=== PATIENT | female | born 1955 | race Two or more races ===

== ENCOUNTER 2020-01-14 07:17 | Day surgery (SDC) | payer MEDICAID ==
[2020-01-12 07:47] LABS: BASOPHILS % (AUTO) 1.2 % (0.0-2.0); EOSINOPHILS % (AUTO) 3.6 % (0.0-3.0); HEMOGLOBIN 14.5 G/DL (12.0-16.0); LYMPHOCYTES % (AUTO) 37.6 % (20.0-45.0); MEAN CORPUSCULAR VOLUME 87 FL (80-99); MONOCYTES % (AUTO) 6.7 % (1.0-10.0); PLATELET COUNT 171 K/UL (150-450); RED BLOOD COUNT 4.83 M/UL (4.20-5.40); RED CELL DISTRIBUTION WIDTH 12.2 % (11.6-14.8); WHITE BLOOD COUNT 5.6 K/UL (4.8-10.8)
[2020-01-12 08:01] LABS: APPEARANCE,URINE CLEAR; BILIRUBIN, URINE NEGATIVE (NEGATIVE); COLOR,URINE PALE YELLOW; GLUCOSE, URINE (UA) 4+ (NEGATIVE); KETONES,URINE NEGATIVE (NEGATIVE); LEUKOCYTE ESTERASE ,URINE NEGATIVE (NEGATIVE); NITRITE,URINE NEGATIVE (NEGATIVE); PH,URINE 6.5 (4.5-8.0); PROTEIN,URINE NEGATIVE (NEGATIVE); UROBILINOGEN,URINE NORMAL MG/DL (0.0-1.0)
[2020-01-12 08:45] LABS: ANION GAP 8 mmol/L (5-15); BLOOD UREA NITROGEN 13 mg/dL (7-18); CALCIUM 8.6 MG/DL (8.5-10.1); CARBON DIOXIDE 29 MMOL/L (21-32); CHLORIDE 101 MMOL/L (98-107); CREATININE 0.7 MG/DL (0.55-1.30); POTASSIUM 4.1 MMOL/L (3.5-5.1); SODIUM 138 MMOL/L (136-145)
--- NOTE | 2020-01-12 13:38 | Diagnostic Imaging Report ---
Indication: Cough Technique: 2 views of the chest Comparison: None Findings: Lungs and pleural spaces are clear. The heart size is normal. The bones are unremarkable except for mild thoracic scoliotic deformity and degenerative spondylosis. Impression: No acute process
--- NOTE | 2020-01-12 16:58 | Cardiology Report ---
APPROVED REPORT EKG Measurement Heart [id number] [id number] <Conclusion> Normal sinus rhythm Possible Left atrial enlargement Possible Anterior infarct, age undetermined Abnormal ECG
--- NOTE | 2020-01-13 12:45 | Pre-op HX & Phy Repo 2 SIG ---
DATE OF ADMISSION: 01/14/2020 SCHEDULED FOR OUTPATIENT SURGERY: 01/14/2020 HISTORY OF PRESENT ILLNESS: The patient is a 64-year-old female in stable health, insulin-dependent diabetic who recently underwent breast imaging studies revealing suspicious calcifications in the lower inner quadrant of the left breast. 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 The patient has a past history of excision of a left breast inferior milk cyst at age 20. She is scheduled to undergo left breast partial mastectomy with preoperative needle localization. PAST MEDICAL HISTORY/MEDICATIONS: Insulin and fluoxetine. ALLERGIES: None. OPERATIONS: Excision of left breast milk cyst at age 20. PHYSICAL EXAMINATION: VITAL SIGNS: The patient is 5 feet 3 inches, 174 pounds. HEENT: Within normal limits. LUNGS: Clear. HEART: Regular rhythm. BREASTS: Small to moderate in size and ptotic. There is no palpable mass in either breast. There is no axillary or supraclavicular lymphadenopathy. There is a transverse scar inferiorly in the left breast at 6 o'clock near the periphery. ABDOMEN: Soft. PELVIC: Per primary care. RECTAL: Per primary care. EXTREMITIES: Without edema. NEUROLOGIC: Physiologic. IMPRESSION: Ductal carcinoma in situ, left breast. PLAN: Left breast partial mastectomy with preoperative needle localization. DISCUSSION: I have had a full discussion with the patient regarding the nature of her condition, the nature of the surgery, indications, alternatives, options, and risks including bleeding, infection, scarring or distortion of breast or nipple, need for additional treatment including possible more surgery or other treatments, both medical and radiation based on final pathology, etc. All questions have been answered. She understands and agrees to proceed. Fox Rodriguez M.D. DR: Daiana JOB#: [id number] CC:
[~2020-01-14] VITALS: Ht 162.6 cm; Wt 81.6 kg
[2020-01-14] VITALS (18 sets, daily range): BP systolic 113–161; BP diastolic 66–91
[2020-01-14] MEDS ORDERED: BENAZEPRIL HCL10 MG ORAL (09:33)
[2020-01-14] MEDS ORDERED: ASPIRIN81 MG ORAL (09:34)
[2020-01-14] MEDS ORDERED: Bacitracin 50000 Units Vial ONE (09:56)
[2020-01-14] MEDS ORDERED: NeoSporin Gu Irrig 1ml Amp IRRIG ONE (09:56)
--- NOTE | 2020-01-14 09:59 | Anethesia Preoperative Eval ---
Anesthesia Pre-op PMH/ROS General Date of Evaluation: Jan 14, 2020 Anesthesiologist: Chadd ASA Score: ASA 3 Mallampati Score Class I : Soft palate, uvula, fauces, pillars visible Class II: Soft palate, uvula, fauces visible Class III: Soft palate, base of uvula visible Class IV: Only hard plate visible Mallampati Classification: Class III Surgeon: Michael Diagnosis: Left breast cancer Surgical Procedure: Left breast partial mastectomy Anesthesia History: none Family History: no anesthesia problems Allergies: Coded Allergies: No Known Allergies (Unverified , 01/13/20) Medications: see eMAR Patient NPO?: Yes NPO Date: Jan 14, 2020 NPO Time: 00:00 Past Medical History Cardiovascular: Reports: HTN, other - HLD; Denies: CAD, NE, valve dz, arrhythmia Pulmonary: Denies: asthma, COPD, ANGE, other Gastrointestinal/Genitourinary: Reports: GERD; Denies: CRI, ESRD, other Neurologic/Psychiatric: Reports: depression/anxiety; Denies: dementia, CVA, TIA, other Endocrine: Reports: DM; Denies: hypothyroidism, steroids, other HEENT: Denies: cataract (L), cataract (R), glaucoma, [place] (L), [place] (R), other Hematology/Immune: Reports: anemia; Denies: DVT, bleeding disorder, other Musculoskeletal/Integumentary: Denies: OA, RA, DJD, DDD, edema, other PSxH Narrative: UHR, left breast surgery, btl Anesthesia Pre-op Phys. Exam Physician Exam see chart Constitutional: NAD Cardiovascular: RRR Respiratory: CTA Airway Exam Mallampati Score: Class III MO: full ROM: full Teeth: missing, intact Dentures: upper - partials Anesthesia Pre-op A/P Labs Chemistry Test 01/14/20 09:50 POC Whole Blood Glucose 238 MG/DL (74-106) H Studies Pre-op Studies: EKG - NSR Risk Assessment & Plan Assessment: ASA III Plan: GA Status Change Before Surgery: No Pre-Antibiotics Drug: Ancef 2g Given Within 1 Hr of Incision: Yes Keeley Florentino MD Jan 14, 2020 09:59
[2020-01-14] MEDS ORDERED: DiphenhydrAMINE 50mg/ml Inj IVP PRN (10:00)
[2020-01-14] MEDS ORDERED: LORazepam Inj 2mg/ml 1ml IV PRN (10:00)
[2020-01-14] MEDS ORDERED: fentaNYL 100 mcg/2 mL IV PRN (10:00)
[2020-01-14] MEDS ORDERED: Metoclopramide 10mg/2ml Inj IVP PRN (10:00)
[2020-01-14] MEDS ORDERED: Ketorolac 30mg Inj IV PRN (10:00)
[2020-01-14] MEDS ORDERED: LR 1000ml 1,000 ML IVLG SCH (10:00)
[2020-01-14] MEDS ORDERED: Hydromorphone 0.5mg/0.5ml inj IVP PRN (10:00)
[2020-01-14] MEDS ORDERED: Midazolam 2mg/2ml Inj IVP PRN (10:00)
[2020-01-14] MEDS ORDERED: fentaNYL 100 mcg/2 mL IV ONE (10:05)
[2020-01-14] MEDS ORDERED: Lidocaine 1% MPF 10mg/ml 5ml ONE (10:05)
[2020-01-14] MEDS ORDERED: Midazolam 2mg/2ml Inj ONE (10:05)
--- NOTE | 2020-01-14 10:09 | Pre-Procedure Note/Attestation ---
Pre-Procedure Note/Attestation Complete Prior to Procedure Planned Procedure: left Procedure Narrative: left breast partial mastectomy with pre-operative needle localization Indications for Procedure Pre-Operative Diagnosis: DCIS left breast Attestation I attest that I discussed the nature of the procedure; its benefits; risks and complications; and alternatives (and the risks and benefits of such alternatives), prior to the procedure, with the patient (or the patient's legal direct customer service representative). I attest that, if there was a reasonable possibility of needing a blood transfusion, the patient (or the patient's legal direct customer service representative) was given the [facility] standardized written summary, pursuant to the [place] Blood Safety Act ([place] Health and Safety Code # 1645, as amended). I attest that I re-evaluated the patient just prior to the surgery and that there has been no change in the patient's H&P, except as documented below:none Fox Rodriguez MD Jan 14, 2020 10:09
[2020-01-14] MEDS ORDERED: gabapentin PO (10:24)
[2020-01-14] MEDS ORDERED: atorvastatin PO (10:26)
[2020-01-14] MEDS ORDERED: LR 1000ml ONE (10:30)
[2020-01-14] MEDS ORDERED: NS Irrig 1000ml ONE (10:30)
[2020-01-14] MEDS ORDERED: Sterile Water Irrig 1000ml IRRIG ONE (10:30)
--- NOTE | 2020-01-14 11:28 | Brief Operative Note ---
Immediate Post Operative Note Operative Note Pre-op Diagnosis: DCIS left breast Procedure: left breast partial mastectomy with pre-operative needle localization Post-op Diagnosis: same Surgeon: jennifer Anesthesiologist: matty Anesthesia: general Specimen: yes - left breast calcifications Complications: none Condition: stable Fluids: see anesthesia record Estimated Blood Loss: minimal Drains: none Implant(s) used?: No Fox Rodriguez MD Jan 14, 2020 11:28
[2020-01-14] MEDS ORDERED: Tylenol #3 tab (300mg/30mg) ORAL PRN (11:30)
[2020-01-14] MEDS ORDERED: HYDROmorphone 1mg/ml Carpuject SUBQ PRN (11:30)
[2020-01-14] MEDS ORDERED: HYDROcodone/Acetamin 5/325 tab ORAL PRN (11:30)
[2020-01-14] MEDS ORDERED: GLIPIZIDE5 MG ORAL (11:31)
[2020-01-14] MEDS ORDERED: OMEPRAZOLE PO (11:32)
--- NOTE | 2020-01-14 11:32 | Immediate Post-Op Evaluation ---
Immediate Post-Op Evalulation Immediate Post-Op Evalulation Procedure: Left breast partial mastectomy Date of Evaluation: Jan 14, 2020 Time of Evaluation: 11:33 IV Fluids: 600 Blood Products: 0 Estimated Blood Loss: min Urinary Output: 0 Blood Pressure Systolic: 161 Blood Pressure Diastolic: 81 Pulse Rate: 68 Respiratory Rate: 16 O2 Sat by Pulse Oximetry: 98 Temperature (Fahrenheit): 97.9 Pain Score (1-10): 0 Nausea: No Vomiting: No Complications 0 Patient Status: awake, reacts, patent, none Hydration Status: adequate Drug: Ancef 2g Given Within 1 Hr of Incision: Yes Keeley Florentino MD Jan 14, 2020 11:32
[2020-01-14] MEDS ORDERED: Insulin SUBQ (11:33)
--- NOTE | 2020-01-14 11:33 | 48 Hour Post Anesthesia Eval ---
Post Anesthesia Evaluation Procedure: Left breast partial mastectomy Date of Evaluation: Jan 14, 2020 Airway: patent Nausea: No Vomiting: No Pain Intensity: 0 Hydration Status: adequate Cardiopulmonary Status: at baseline Mental Status/LOC: patient returned to baseline Post-Anesthesia Complications: 0 Follow-up care needed: ready to discharge Keeley Florentino MD Jan 14, 2020 11:33
--- NOTE | 2020-01-14 15:00 | Operative Note - Dictated ---
DATE OF OPERATION: 01/14/2020 SURGEON: Fox Rodriguez MD ASBESTOS BRAKE LINING FINISHER: None. ANESTHESIOLOGIST: Keeley Florentino MD. TYPE OF ANESTHESIA: General. PREOPERATIVE DIAGNOSIS: Ductal carcinoma in situ, left breast. POSTOPERATIVE DIAGNOSIS: Ductal carcinoma in situ, left breast. OPERATION PERFORMED: Left breast partial mastectomy with preoperative needle localization. DESCRIPTION OF PROCEDURE: The patient was taken to the operating room and under general anesthesia with sequential compression device stockings in place, she was prepped and draped in usual fashion. The lesion was located in the medial aspect of the lower inner quadrant of the left breast. A transversely oriented curvilinear incision was made and flaps dissected circumferentially achieving hemostasis with cautery. The localization wire was brought into the field. The appropriate sector of breast tissue was excised with cautery down to the chest wall orienting the specimen with suture markers placed anterior, superior, and medial. Specimen radiograph confirmed that the calcifications were present within the removed tissue. The field was irrigated with water and antibiotic solution and hemostasis carefully achieved with cautery. The incision was closed with interrupted 3-0 Vicryl deep dermal subcutaneous sutures followed by continuous 4-0 Monocryl subcuticular suture. Mastisol and half-inch Steri-Strips were applied followed by dry sterile dressing. Final sponge and needle counts were correct. The patient tolerated the procedure well and left the operating room in good condition. Fox Rodriguez M.D. DR: Daiana JOB#: [id number] CC:
[2020-01-14] MEDS ORDERED: D5 1/2NS 1,000 ML IV SCH (16:00)
== END 2020-01-14 14:00 | disposition home or self-care (01) ==
LOC: SUR 07:17
DX: D05.12 Intraductal carcinoma in situ of left breast (principal); I10 Essential (primary) hypertension; E78.5 Hyperlipidemia, unspecified; K21.9 Gastro-esophageal reflux disease without esophagitis; E11.9 Type 2 diabetes mellitus without complications; D64.9 Anemia, unspecified; F32.9 Major depressive disorder, single episode, unspecified; F41.9 Anxiety disorder, unspecified; Z79.4 Long term (current) use of insulin; M47.814 Spondylosis without myelopathy or radiculopathy, thoracic region
CPT/HCPCS: 19301; 36415; 71046; 80048; 81003; 82962; 85025; 85610; 85730; 93005; 94003; J0690; J1170; J1885; J2250; J2405; J2704; J3010; J7120; U0002; Z7512; 94150

== ENCOUNTER 2020-03-25 07:59 | Day surgery (SDC) | payer MEDICAID ==
[2020-03-24 08:17] LABS: BASOPHILS % (AUTO) 1.4 % (0.0-2.0); EOSINOPHILS % (AUTO) 2.7 % (0.0-3.0); HEMATOCRIT 39.9 % (37.0-47.0); HEMOGLOBIN 14.1 G/DL (12.0-16.0); LYMPHOCYTES % (AUTO) 32.9 % (20.0-45.0); MEAN CORPUSCULAR VOLUME 86 FL (80-99); MONOCYTES % (AUTO) 7.4 % (1.0-10.0); NEUTROPHILS % (AUTO) 55.6 % (45.0-75.0); PLATELET COUNT 186 K/UL (150-450); RED BLOOD COUNT 4.67 M/UL (4.20-5.40); RED CELL DISTRIBUTION WIDTH 14.8 % (11.6-14.8); WHITE BLOOD COUNT 7.4 K/UL (4.8-10.8)
[2020-03-24 08:30] LABS: ANION GAP 5 mmol/L (5-15); BLOOD UREA NITROGEN 20 mg/dL (7-18); CALCIUM 9.2 MG/DL (8.5-10.1); CARBON DIOXIDE 31 MMOL/L (21-32); CHLORIDE 103 MMOL/L (98-107); CREATININE 0.7 MG/DL (0.55-1.30); POTASSIUM 4.4 MMOL/L (3.5-5.1); SODIUM 139 MMOL/L (136-145)
[2020-03-24 08:35] LABS: BILIRUBIN, URINE NEGATIVE (NEGATIVE); COLOR,URINE PALE YELLOW; GLUCOSE, URINE (UA) NEGATIVE (NEGATIVE); KETONES,URINE NEGATIVE (NEGATIVE); LEUKOCYTE ESTERASE ,URINE 1+ (NEGATIVE); NITRITE,URINE NEGATIVE (NEGATIVE); PH,URINE 6 (4.5-8.0); PROTEIN,URINE NEGATIVE (NEGATIVE); UROBILINOGEN,URINE NORMAL MG/DL (0.0-1.0)
[2020-03-24 08:40] LABS: APPEARANCE,URINE CLEAR
--- NOTE | 2020-03-24 15:15 | Pre-op HX & Phy Repo 2 SIG ---
DATE OF ADMISSION: 03/25/2020 Scheduled for outpatient surgery on March 25, 2020. HISTORY OF PRESENT ILLNESS: The patient is a 64-year-old female in overall good health, diabetic, on insulin, who underwent left breast partial mastectomy with preoperative needle localization on January 14, 2020 for a preoperative diagnosis of ductal carcinoma in situ. She previously had imaging studies revealing calcifications in the left breast lower inner quadrant. The pathology revealed that the inferior margin was within 1 mm. Additional imaging at another location reveal an additional 7 mm faint calcification at 6:30 orientation in the left breast. Needle core biopsy revealed again ductal carcinoma in situ. The patient is scheduled to undergo re-excision of the left breast ductal carcinoma in situ with preoperative needle localization. MEDICATIONS: Insulin and fluoxetine. ALLERGIES: None. OPERATIONS: None. REVIEW OF SYSTEMS: She is 2, para 2, menopausal for 6 years. PHYSICAL EXAMINATION: GENERAL: 5 feet 3 inches, 177 pounds. VITAL SIGNS: Stable. HEENT: Within normal limits. LUNGS: Clear. HEART: Regular rhythm. BREASTS: The right breast is unremarkable. The left breast has a well-healed inferior left breast incision. There is no axillary or supraclavicular lymphadenopathy. ABDOMEN: Soft. PELVIC AND RECTAL: Per primary care. EXTREMITIES: Without edema. NEUROLOGIC: Physiologic. IMPRESSION: Ductal carcinoma in situ, left breast. PLAN: Re-excision of the left breast with preoperative needle localization. DISCUSSION: I have had a full discussion with the patient regarding her condition, the nature of the surgery, the indications, alternatives, options, and risks including bleeding, infection, scarring, or distortion of breast or nipple, need for additional treatments including radiation therapy and others based on final pathology. All questions have been answered. She understands and agrees to proceed. Fox Rodriguez M.D. DR: KIRBY JOB#: [id number] CC: PATRIA
[~2020-03-25] VITALS: Ht 160 cm; Wt 79.4 kg
[2020-03-25] VITALS (12 sets, daily range): BP systolic 107–134; BP diastolic 40–76
[~2020-03-25 07:59] MED LIST: ASPIRIN81 MG ORAL; BENAZEPRIL HCL10 MG ORAL; GLIPIZIDE5 MG ORAL; Insulin SUBQ; OMEPRAZOLE PO; atorvastatin PO; gabapentin PO
[2020-03-25] MEDS ORDERED: [UNRECOGNIZED DRUG - OTHER] ORAL (08:40)
[2020-03-25] MEDS ORDERED: ARIMIDEX1 MG ORAL (08:40)
--- NOTE | 2020-03-25 09:25 | Pre-Procedure Note/Attestation ---
Pre-Procedure Note/Attestation Complete Prior to Procedure Planned Procedure: left Procedure Narrative: re-excision of ductal carcinoma in situ left breast Indications for Procedure Pre-Operative Diagnosis: ductal carcinoma in situ left breast Attestation I attest that I discussed the nature of the procedure; its benefits; risks and complications; and alternatives (and the risks and benefits of such alternatives), prior to the procedure, with the patient (or the patient's legal printing supplies sales representative). I attest that, if there was a reasonable possibility of needing a blood transfusion, the patient (or the patient's legal printing supplies sales representative) was given the [facility] standardized written summary, pursuant to the [place] Blood Safety Act ([place] Health and Safety Code # 1645, as amended). I attest that I re-evaluated the patient just prior to the surgery and that ther e has been no change in the patient's H&P, except as documented below: none Fox Rodriguez MD Mar 25, 2020 09:24
[2020-03-25] MEDS ORDERED: Bacitracin 50000 Units Vial ONE (10:11)
[2020-03-25] MEDS ORDERED: fentaNYL 100 mcg/2 mL IV ONE (10:13)
[2020-03-25] MEDS ORDERED: Ketamine 500mg/10ml vial ONE (10:14)
[2020-03-25] MEDS ORDERED: NS Irrig 1000ml ONE (10:20)
[2020-03-25] MEDS ORDERED: Sterile Water Irrig 1000ml IRRIG ONE (10:20)
[2020-03-25] MEDS ORDERED: LR 1000ml ONE (10:20)
--- NOTE | 2020-03-25 10:23 | Anethesia Preoperative Eval ---
Anesthesia Pre-op PMH/ROS General Date of Evaluation: Mar 25, 2020 Time of Evaluation: 10:19 Anesthesiologist: Haleigh ASA Score: ASA 3 Mallampati Score Class I : Soft palate, uvula, fauces, pillars visible Class II: Soft palate, uvula, fauces visible Class III: Soft palate, base of uvula visible Class IV: Only hard plate visible Mallampati Classification: Class III Surgeon: Michael Diagnosis: Ductal carcinoma in situ, left breast. Surgical Procedure: L Breast Partial Mastectomy Anesthesia History: none Family History: no anesthesia problems Allergies: Coded Allergies: No Known Allergies (Unverified , 03/24/20) Medications: see eMAR Patient NPO?: Yes Past Medical History Cardiovascular: Reports: HTN, other - HL Gastrointestinal/Genitourinary: Reports: GERD Neurologic/Psychiatric: Reports: depression/anxiety Endocrine: Reports: DM Hematology/Immune: Reports: anemia, other - BREAST CA Other: obesity - BMI 32 PSxH Narrative: Umbilical Hernia Anesthesia Pre-op Phys. Exam Physician Exam Last Vital Signs Date Time Temp Pulse Resp B/P (MAP) Pulse Ox O2 Delivery O2 Flow Rate FiO2 03/25/20 08:48 Room Air 03/25/20 08:24 97.2 74 18 110/62 100 Constitutional: NAD Neurologic: CN 2-12 intact Cardiovascular: RRR Respiratory: CTA Gastrointestinal: S/NT/ND Airway Exam Mallampati Score: Class III MO: limited ROM: limited Teeth: missing Dentures: upper Anesthesia Pre-op A/P Labs Chemistry Test 03/25/20 08:57 POC Whole Blood Glucose 192 MG/DL (74-106) H Risk Assessment & Plan Assessment: ASA 3 Plan: GA, SED Status Change Before Surgery: No Pre-Antibiotics Dru Gram Ancef IV Given Within 1 Hr of Incision: Yes Time Given: 10:26 Nato Ricardo MD Mar 25, 2020 10:23
[2020-03-25] MEDS ORDERED: Lidocaine 1% MPF 10mg/ml 5ml ONE (10:26)
[2020-03-25] MEDS ORDERED: Sodium Chloride 10ml vial INJ ONE (10:26)
[2020-03-25] MEDS ORDERED: HYDROcodone/Acetamin 7.5/325 tab ORAL PRN (10:30)
[2020-03-25] MEDS ORDERED: Meperidine 25mg/1ml Inj (FOR RIGORS ONLY) IV PRN (10:30)
[2020-03-25] MEDS ORDERED: oxyCODONE HCL/Acetaminophen 5/325mg ORAL PRN (10:30)
[2020-03-25] MEDS ORDERED: DiphenhydrAMINE 50mg/ml Inj IVP PRN (10:30)
[2020-03-25] MEDS ORDERED: Hydromorphone 0.5mg/0.5ml inj IVP PRN (10:30)
[2020-03-25] MEDS ORDERED: LORazepam Inj 2mg/ml 1ml IV PRN (10:30)
[2020-03-25] MEDS ORDERED: HYDROcodone/Acetamin 5/325 tab ORAL PRN ×2 (10:30→11:30)
[2020-03-25] MEDS ORDERED: Midazolam 2mg/2ml Inj IVP PRN (10:30)
[2020-03-25] MEDS ORDERED: Ketorolac 30mg Inj IV PRN ×2 (10:30)
[2020-03-25] MEDS ORDERED: LR 1000ml 1,000 ML IVLG SCH (10:30)
[2020-03-25] MEDS ORDERED: Atropine Sulfate 0.4mg/ml inj IVP PRN (10:30)
[2020-03-25] MEDS ORDERED: Labetalol 5mg/ml 20ml vial IV PRN (10:30)
[2020-03-25] MEDS ORDERED: Acetaminophen (Non formulary) 100 ML IV ONE (10:30)
[2020-03-25] MEDS ORDERED: Metoclopramide 10mg/2ml Inj IVP PRN (10:30)
[2020-03-25] MEDS ORDERED: fentaNYL 100 mcg/2 mL IV PRN (10:30)
--- NOTE | 2020-03-25 10:45 | Immediate Post-Op Evaluation ---
Immediate Post-Op Evalulation Immediate Post-Op Evalulation Procedure: L Breast Partial Mastectomy Date of Evaluation: Mar 25, 2020 Time of Evaluation: 11:49 IV Fluids: 700 LR Blood Products: 0 Estimated Blood Loss: 25 Urinary Output: 0 Blood Pressure Systolic: 107 Blood Pressure Diastolic: 43 Pulse Rate: 60 Respiratory Rate: 16 O2 Sat by Pulse Oximetry: 100 Temperature (Fahrenheit): 97.7 Pain Score (1-10): 2 Nausea: No Vomiting: No Complications 0 Patient Status: awake, reacts, patent, none Hydration Status: adequate Dru Gram Ancef IV Given Within 1 Hr of Incision: Yes Time Given: 10:26 Nato Ricardo MD Mar 25, 2020 10:45
--- NOTE | 2020-03-25 10:46 | 48 Hour Post Anesthesia Eval ---
Post Anesthesia Evaluation Procedure: L Breast Partial Mastectomy Date of Evaluation: Mar 25, 2020 Time of Evaluation: 14:23 Blood Pressure Systolic: 132 0: 78 Pulse Rate: 64 Respiratory Rate: 18 Temperature (Fahrenheit): 98 O2 Sat by Pulse Oximetry: 100 Airway: patent Nausea: No Vomiting: No Pain Intensity: 2 Hydration Status: adequate Cardiopulmonary Status: Stable Mental Status/LOC: patient returned to baseline Follow-up Care/Observations: 0 Post-Anesthesia Complications: 0 Follow-up care needed: ready to discharge Nato Ricardo MD Mar 25, 2020 10:46
[2020-03-25] MEDS ORDERED: D5 1/2NS 1,000 ML IV SCH (11:30)
[2020-03-25] MEDS ORDERED: HYDROmorphone 1mg/ml Carpuject SUBQ PRN (11:30)
[2020-03-25] MEDS ORDERED: Tylenol #3 tab (300mg/30mg) ORAL PRN (11:30)
--- NOTE | 2020-03-25 11:31 | Brief Operative Note ---
Immediate Post Operative Note Operative Note Pre-op Diagnosis: ductal carcinoma in situ left breast Procedure: re-excision ductal carcinoma in situ left breast with pre-op needle localization Post-op Diagnosis: same Post-op Diagnosis: same as pre-op Findings: consistent w/pre-op dx studies Surgeon: jennifer Anesthesiologist: imtiaz Anesthesia: general Specimen: yes - left breast partial mastectomy Complications: none Condition: stable Fluids: see anesthesia record Estimated Blood Loss: minimal Drains: none Implant(s) used?: No Fxo Rodriguez MD Mar 25, 2020 11:31
--- NOTE | 2020-03-25 13:45 | Operative Note - Dictated ---
DATE OF OPERATION: 03/25/2020 SURGEON: Fox Rodriguez MD. SHOT POLISHER: None. ANESTHESIOLOGIST: Nato Ricardo MD. TYPE OF ANESTHESIA: General. PREOPERATIVE DIAGNOSIS: Ductal carcinoma in situ, left breast, status post partial mastectomy. POSTOPERATIVE DIAGNOSIS: Ductal carcinoma in situ, left breast, status post partial mastectomy. OPERATION PERFORMED: Re-excision ductal carcinoma in situ, left breast with preoperative needle localization. INDICATIONS: The patient underwent a partial mastectomy with needle localization on January 14, 2020 for ductal carcinoma in situ manifested by lower inner quadrant left breast calcifications on imaging studies. The final pathology revealed that the inferior margin was within 1 mm. The patient underwent additional imaging revealing additional 7 mm faint calcifications at 6:30 position. The patient was advised to undergo re-excision. DESCRIPTION OF PROCEDURE: The patient was taken to the operating room and under general anesthesia with sequential compression device stockings in place, she was prepped and draped in usual fashion. The previous curvilinear inferior breast incision was reopened on its medial portion extending upwards toward 9 o'clock. Flaps were dissected circumferentially. The wire was identified and brought into the field. The appropriate section of breast tissue was removed with some separation because of scarring from the previous surgery. Specimen radiograph confirmed the wire, but the clip had become dislodged. Close inspection of the operative field revealed no residual abnormal tissue or indication of radiographic manipulation, and I concluded that the appropriate area had been resected. Hemostasis was carefully achieved with cautery. The wound was irrigated with sterile water followed by antibiotic solution. Incision was closed with interrupted 0 Vicryl deep dermal subcutaneous interrupted sutures followed by continuous 4-0 Monocryl subcuticular suture. Mastisol and half-inch Steri-Strips were applied followed by dry sterile dressing. A partial mastectomy surgical brassiere was applied. The patient tolerated the procedure well and left the operating room in good condition. Fox Rodriguez M.D. DR: ANURAG JOB#: [id number] CC:
== END 2020-03-25 14:15 | disposition home or self-care (01) ==
LOC: SUR 07:59
DX: D05.12 Intraductal carcinoma in situ of left breast (principal); I10 Essential (primary) hypertension; E11.9 Type 2 diabetes mellitus without complications; E66.9 Obesity, unspecified; F32.9 Major depressive disorder, single episode, unspecified; F41.9 Anxiety disorder, unspecified; K21.9 Gastro-esophageal reflux disease without esophagitis; Z79.4 Long term (current) use of insulin
CPT/HCPCS: 19301; 36415; 80048; 81001; 82962; 85025; 85610; 85730; 93005; 94003; J0131; J0690; J1100; J1170; J2250; J2405; J3010; J3490; J7120; U0002; Z7512; 94150